=== PATIENT | female | born 1985 | race Asian ===

== ENCOUNTER 2021-12-02 15:18 | Outpatient (CLI) | payer OTHER ==
[2021-12-02 16:01] LABS: BILIRUBIN,URINE NEGATIVE (NEGATIVE); GLUCOSE, URINE (UA) NEGATIVE (NEGATIVE); KETONES,URINE (UA) NEGATIVE (NEGATIVE); LEUKOCYTE ESTERASE, URINE TRACE (NEGATIVE); NITRITE,URINE NEGATIVE (NEGATIVE); OCCULT BLOOD,URINE NEGATIVE (NEGATIVE); PROTEIN,URINE NEGATIVE (NEGATIVE); UROBILINOGEN,URINE 0.2 (NORMAL) E.U./dL (NORMAL)
[2021-12-02 16:02] LABS: CLARITY,URINE CLEAR (CLEAR)
[2021-12-02 17:04] LABS: BACTERIA,URINE Rare /HPF (None Seen); RBC,URINE 0-5 /HPF (0-5); SQUAMOUS EPITHELIAL CELL,UR FEW Squamous (<= Few); WBC,URINE 0-3 /HPF (0-5)
== END 2021-12-02 15:19 | disposition home or self-care (01) ==
LOC: LAB 15:18
PROVIDERS: ATTEND Obstetrics & Gynecology
DX: Z32.01 Encounter for pregnancy test, result positive (principal)
CPT/HCPCS: 81001; 87086

== ENCOUNTER 2021-12-18 11:12 | Outpatient (CLI) | payer OTHER ==
--- NOTE | 2021-12-18 12:58 | Ultrasound Report ---
PROCEDURE: OB First Trimester INDICATIONS: POSITIVE TEST, DATING OUTSIDE/PRIOR DATING DATA: Last menstrual period (LMP): 10/04/2021. LMP-based estimated date of delivery (MICHAEL): 07/11/2022. First dating scan (date and location): 12/18/2021. Estimated date of delivery (MICHAEL) from first dating scan: 07/12/2022. TECHNIQUE: Real-time scanning was performed of the fetus and maternal pelvic organs, with image documentation. COMPARISON: None. FINDINGS: Embryo: Intrauterine gestational sac and pole are seen. The crown-rump length is 3.7 cm, resul ting in an estimated gestational age of 10 weeks 4 days. The gestational sac is located in the uterin e fundus with somewhat thinned appearance of the overlying myometrium. Heart rate: 173 bpm Measurement variability in dating: +/- 4 weeks by LMP, +/- 7 days by mean sac diameter (use before 6 weeks gestation if crown-rump length not able to be measured), +/- 5 days by crown-rump length (6-12 weeks gestation). Maternal organs: Left ovarian corpus luteal cyst is seen. Right ovary is unremarkable. IMPRESSION: Single live intrauterine with estimated gestational age of 10 weeks 4 days, resulting in an ultrasound MICHAEL of 07/12/2022. Of note, the myometrium overlying the gestational sac appears somewhat thin, and clinical and imaging follow-up is recommended to exclude the possibility of an interstitia l or cornual . Reviewed by: Arik Chan MD on 12/18/2021 12:57 PM PDT Approved by: Arik Chan MD on 12/18/2021 12:57 PM PDT Station ID: [id number]
== END 2021-12-18 11:13 | disposition home or self-care (01) ==
LOC: DI 11:12
PROVIDERS: ATTEND Obstetrics & Gynecology
DX: O26.891 Other specified pregnancy related conditions, first trimester (principal); Z3A.10 10 weeks gestation of pregnancy

== ENCOUNTER 2021-12-30 08:00 | Outpatient (CLI) | payer OTHER ==
[2021-12-30 23:46] LABS: CHLAMYDIA TRACHOMATIS DNA NEGATIVE (NEGATIVE); NEISSERIA GONORRHOEAE DNA NEGATIVE (NEGATIVE); TRICHOMONAS VAGINALIS DNA NEGATIVE (NEGATIVE)
== END 2021-12-30 23:59 | disposition home or self-care (01) ==
LOC: LAB.R 08:00
PROVIDERS: ATTEND Obstetrics & Gynecology
DX: Z11.3 Encounter for screening for infections with a predominantly sexual mode of transmission (principal)
CPT/HCPCS: 87491; 87591; 87661

== ENCOUNTER 2021-12-30 12:11 | Outpatient (CLI) | payer OTHER ==
[2021-12-30 12:28] LABS: BASOPHILS % (AUTO) 0.3 %; EOSINOPHILS # (AUTO) 0.5 10^3/uL (0.0-0.7); EOSINOPHILS % (AUTO) 5.5 %; HCT - HEMATOCRIT 38.3 % (37.0-47.0); HGB - HEMOGLOBIN 13.4 g/dL (12.0-16.0); LYMPHOCYTES # (AUTO) 1.6 10^3/uL (1.5-3.5); LYMPHOCYTES % (AUTO) 17.7 %; MEAN CORPUSCULAR HEMOGLOBIN 32.7 pg (27.0-31.0); MEAN CORPUSCULAR VOLUME 93.4 fL (81.0-99.0); MEAN PLATELET VOLUME 9.2 fL (7.9-10.8); MONOCYTES # (AUTO) 0.4 10^3/uL (0.0-1.0); MONOCYTES % (AUTO) 3.9 %; NEUTROPHILS # (AUTO) 6.5 10^3/uL (1.5-6.6); NEUTROPHILS % (AUTO) 72.3 %; PLT - PLATELET COUNT 206 10^3/uL (130-450); RED CELL DISTRIBUTION WIDTH 11.8 % (12.0-15.0)
[2021-12-31 06:11] LABS: HBsAG SCREEN Negative (Negative); HCV AB <0.1 s/co ratio (0.0-0.9); HIV SCREEN 4TH GENERATION Non Reactive (Non Reactive); RPR Non Reactive (Non Reactive)
[2021-12-31 13:11] LABS: VARICELLA-ZOSTER AB IGG 779 index (Immune >165)
== END 2021-12-30 12:12 | disposition home or self-care (01) ==
LOC: LAB 12:11
PROVIDERS: ATTEND Obstetrics & Gynecology
DX: Z36.89 Encounter for other specified antenatal screening (principal)
CPT/HCPCS: 36415; 85025; 86592; 86762; 86787; 86803; 86850; 86900; 86901; 87340; 87389; 87491; 87591; 87661

== ENCOUNTER 2022-01-10 12:49 | Outpatient (CLI) | payer OTHER ==
--- NOTE | 2022-01-10 19:31 | Ultrasound Report ---
PROCEDURE: OB F/U or Repeat INDICATIONS: ABN PRESENTATION OUTSIDE/PRIOR DATING DATA: Last menstrual period (LMP): 10/04/2021. LMP-based estimated date of delivery (MICHAEL): 07/11/2022. First dating scan (date and location): 12/18/2021. Estimated date of delivery (MICHAEL) from first dating scan: 07/12/2022. TECHNIQUE: Real-time scanning was performed of the fetus, with image documentation and biometric measurements. Endovaginal scanning: None COMPARISON: None. FINDINGS: General: A single living intrauterine gestation is present in the mid body of the uterus. Presentation: Variable Placenta: Placental position is anterior, without previa. Amniotic fluid index: 7.3 cm, normal for gestational age. Largest vertical pocket 2.2 cm heart rate: 160 beats per minute. Maternal cervical canal: 4.3 cm long; normal length is 2.5 cm or more. biometrics: Biparietal diameter: 2.52 cm, 14 week 2 day Head circumference: 19.14 cm, 14 week 1 day Abdominal circumference: 7.53 cm, 14 week 0 day Femur length: 1.21 cm, 15 week 4 day Estimated gestational age from initial scan: 13 week 6 day Composite gestational age from present scan: 14 week 0 day Visualized anatomy within normal limits. Measurement variability in biometric dating: +/- 10 days from 12-20 weeks gestation, +/- 2 weeks from 20-30 weeks gestation, +/- 3 weeks at 30 weeks gestation or more. Other: Perigestational bleed measures 2.5 x 0.9 x 2.2 cm. The corpus luteum cyst in left ovary measur es 1.8 x 1.4 x 1.5 cm IMPRESSION: Single live intrauterine consistent with 14 week 0 day gestation by current ultrasound, wel l-positioned in the endometrial cavity. No evidence of interstitial or cornual Small perigestational bleed, 2.5 x 2.2 cm Reviewed by: Renato Cox MD on 01/10/2022 6:29 PM DANNY Approved by: Renato Cox MD on 01/10/2022 6:29 PM AKDT Station ID: [id number]
== END 2022-01-10 12:50 | disposition home or self-care (01) ==
LOC: DI 12:49
PROVIDERS: ATTEND Obstetrics & Gynecology
DX: O46.92 Antepartum hemorrhage, unspecified, second trimester (principal); Z3A.14 14 weeks gestation of pregnancy

== ENCOUNTER 2022-01-20 11:36 | Outpatient (CLI) | payer OTHER | END 2022-01-20 11:37 | disposition home or self-care (01) | LOC: LAB 11:36 | PROVIDERS: ATTEND Obstetrics & Gynecology | DX: O09.91 Supervision of high risk pregnancy, unspecified, first trimester (principal); Z36.89 Encounter for other specified antenatal screening | CPT/HCPCS: 36415; 81599; 82105 ==

== ENCOUNTER 2022-04-18 14:10 | Outpatient (CLI) | payer OTHER | END 2022-04-18 14:11 | disposition home or self-care (01) | LOC: LAB 14:10 | PROVIDERS: ATTEND Obstetrics & Gynecology | DX: O09.91 Supervision of high risk pregnancy, unspecified, first trimester (principal) | CPT/HCPCS: 36415; 82950 ==

== ENCOUNTER 2022-05-09 17:01 | Outpatient (CLI) | payer OTHER ==
--- NOTE | 2022-05-10 02:38 | Ultrasound Report ---
PROCEDURE: OB F/U or Repeat INDICATIONS: UTERINE SIZE DATE DISCREPENCY OUTSIDE/PRIOR DATING DATA: Last menstrual period (LMP): 10/04/2021. LMP-based estimated date of delivery (MICHAEL): 07/11/2022. First dating scan (date and location): 12/18/2021. Estimated date of delivery (MICHAEL) from first dating scan: 07/12/2022. The below data below was generated using the ultrasound derived MICHAEL of 07/12/2022 TECHNIQUE: Real-time scanning was performed of the fetus, with image documentation and biometric measurements. COMPARISON: 02/28/2022, 01/10/2022, 12/18/2021. FINDINGS: General: A single living intrauterine gestation is present. Presentation: Breech Placenta: Placental position is anterior, without previa. Amniotic fluid index: 18.2 cm, within normal limits for gestational age. Deepest pocket: 5.8 cm. heart rate: 152 beats per minute. Maternal cervical canal: 3.2 cm long; normal length is 2.5 cm or more. biometrics: Biparietal diameter: 7.6 cm, 30 weeks 3 days Head circumference: 29.6 cm, 32 weeks 5 days Abdominal circumference: 25.5 cm, 29 weeks 5 days Femur length: 5.9 cm, 30 weeks 4 days Estimated gestational age from initial scan: 30 weeks 6 days Composite gestational age from present scan: 30 weeks 6 days Estimated weight and percentile: 1551 g, 22nd percentile Measurement variability in biometric dating: +/- 10 days from 12-20 weeks gestation, +/- 2 weeks from 20-30 weeks gestation, +/- 3 weeks at 30 weeks gestation or more. Other: A probable corpus luteal cyst within the left ovary is redemonstrated measuring approximately 1.2 cm. IMPRESSION: 1. Single living intrauterine demonstrating interval growth with estimated weight at the 22nd percentile, decreased from the 51st percentile on the prior study. Recommend continued follo w-up. Reviewed by: Russell Hernandez MD on 05/10/2022 2:36 AM PDT Approved by: Russell Hernandez MD on 05/10/2022 2:36 AM PDT Station ID: [id number]
== END 2022-05-09 17:02 | disposition home or self-care (01) ==
LOC: DI 17:01
PROVIDERS: ATTEND Obstetrics & Gynecology
DX: O26.843 Uterine size-date discrepancy, third trimester (principal); Z3A.30 30 weeks gestation of pregnancy

== ENCOUNTER 2022-06-12 10:30 | Outpatient (CLI) | payer OTHER | END 2022-06-12 23:59 | disposition home or self-care (01) | LOC: LAB.R 10:30 | PROVIDERS: ATTEND Obstetrics & Gynecology | DX: Z36.85 Encounter for antenatal screening for Streptococcus B (principal) | CPT/HCPCS: 87797 ==

== ENCOUNTER 2022-07-13 08:02 | Inpatient (IN) | payer OTHER ==
[2022-07-13] MEDS ORDERED: OXYTOCIN/SODIUM CHLORIDE 500 ML IV ONE (08:07)
[2022-07-13] MEDS ORDERED: LABETALOL 20 MG/4 ML SYRINGE IVP PRN ×3 (08:07)
[2022-07-13] MEDS ORDERED: hydrALAZINE INJ 20 MG/ML VIAL IVP PRN ×2 (08:07)
[2022-07-13] MEDS ORDERED: TERBUTALINE 1 MG/ML VIAL SUBQ PRN (08:07)
[2022-07-13] MEDS ORDERED: LACTATED RINGERS 1,000 ML ONE (08:07)
[2022-07-13] MEDS ORDERED: METHYLERGONOVINE 0.2 MG/ML VIAL IM PRN (08:07)
[2022-07-13] MEDS ORDERED: fentaNYL 100 MCG/2 ML VIAL IVP PRN (08:07)
[2022-07-13] MEDS ORDERED: lidocaine 1% 20 ML MDV ID PRN (08:07)
[2022-07-13] MEDS ORDERED: SODIUM CHLORIDE FLUSH 0.9% 10 ML SYRINGE IVP PRN (08:07)
[2022-07-13] MEDS ORDERED: OXYTOCIN/SODIUM CHLORIDE 500 ML IV PRN (08:07)
[2022-07-13] MEDS ORDERED: TRANEXAMIC ACID IN NACL 1,000 MG/100 ML BAG IV PRN (08:07)
[2022-07-13] MEDS ORDERED: miSOPROStoL 200 MCG TABLET BC PRN (08:07)
[2022-07-13] MEDS ORDERED: OXYTOCIN 10 UNIT/ML VIAL IM PRN (08:07)
[2022-07-13] MEDS ORDERED: NIFEdipine 10 MG CAPSULE PO PRN (08:07)
[2022-07-13] MEDS ORDERED: CARBOPROST TROMETHAMINE 250 MCG/ML AMP IM PRN (08:07)
[2022-07-13] MEDS ORDERED: miSOPROStoL 200 MCG TABLET PR PRN (08:07)
[2022-07-13] MEDS ORDERED: lidocaine 1% 20 ML MDV ONE (08:19)
--- NOTE | 2022-07-13 08:50 | HISTORY & PHYSICAL EXAMINATION ---
Admit History - Visit Reason Visit Reason: Contractions - : 2 Parity: 1 Care: positive: [facility] Risk/History: positive: None Complications This : positive: None - Mother's Labs Mother's Blood Type: positive: A Mother's RH: positive: Positive GBS: positive: Group B Strep Positive Rubella Status: positive: Immune Review of Systems - Cardiovascular Cariovascular: denies: Chest pain - Gastrointestinal Gastrointestinal: denies: Abdominal pain - All Other Systems All Other Systems: reports: Reviewed and negative Physical - Abdominal Exam Contraction Intensity: positive: Strong Uterine Resting Tone: positive: Soft - Monitoring Strip Review: positive: Category I Plan for Labor - Plan For Labor Plan for Labor: presented at term with full cervical dilation Patient delivered shortly after arriving without complication There was not time for GBS prophylaxis
--- NOTE | 2022-07-13 08:52 | DELIVERY NOTE ---
Delivery Note - Labor Labor: positive: Spontaneous, Augmented by ARM - Infant Delivery Method Delivery Method: positive: Spontaneous vaginal delivery - Presentation Presentation: positive: Vertex - Nuchal Cord Nuchal Cord: positive: Present, Reduced (loose nuchal cord reduced at perineum) - Anesthetic Anesthetic: positive: Lidocaine - 0.5% plain - Amniotic Fluid Description Amniotic Fluid Description: positive: Clear - Episiotomy Type Episiotomy Type: positive: None - Laceration Laceration: positive: None (very superficial skid andrew the interrupted 4-0 vicryl suture) - Suture Suture Type: positive: Vicryl Suture Size: positive: 4-0 - Delivery Outcome Delivery Outcome: positive: Livebirth - [place] : positive: Placed in direct skin contact with mother, Warmed, Tutor Key used sex: positive: Male - Cord Cord: positive: 3 vessels - Placenta Placenta: positive: Intact - Estimated Blood Loss Estimated Blood Loss (in cc): 100 - Post Delivery Events Post Delivery Events: positive: No post delivery events - Delivery Comments (Free Text/Narrative) Delivery Comments (Free Text/Narrative): presented full cervical dilation and delivered after pushing for two contractions. atraumatically delivered from YVES position. Loose nuchal cord reduced at perineum. Placenta spontaneously delivered intact with 3vc. Very superficial laceration that required suture for hemostasis.
[2022-07-13] MEDS ORDERED: LACTATED RINGERS 1,000 ML IV SCH ×2 (09:00→10:00)
[2022-07-13] MEDS ORDERED: SIMETHICONE CHEW 80 MG TABLET PO PRN (09:36)
[2022-07-13 10:05] LABS: BASOPHILS # (AUTO) 0.1 10^3/uL (0.0-0.1); BASOPHILS % (AUTO) 0.4 %; EOSINOPHILS # (AUTO) 0.6 10^3/uL (0.0-0.7); EOSINOPHILS % (AUTO) 4.7 %; HCT - HEMATOCRIT 45.4 % (37.0-47.0); HGB - HEMOGLOBIN 15.4 g/dL (12.0-16.0); LYMPHOCYTES # (AUTO) 1.5 10^3/uL (1.5-3.5); LYMPHOCYTES % (AUTO) 12.6 %; MEAN CORPUSCULAR HEMOGLOBIN 31.7 pg (27.0-31.0); MEAN CORPUSCULAR HGB CONC 33.9 g/dL (32.0-36.0); MEAN CORPUSCULAR VOLUME 93.4 fL (81.0-99.0); MEAN PLATELET VOLUME 11.7 fL (7.9-10.8); MONOCYTES # (AUTO) 0.5 10^3/uL (0.0-1.0); MONOCYTES % (AUTO) 4.3 %; NEUTROPHILS # (AUTO) 9.1 10^3/uL (1.5-6.6); NEUTROPHILS % (AUTO) 77.5 %; PLT - PLATELET COUNT 155 10^3/uL (130-450); RED BLOOD COUNT 4.86 10^6/uL (4.20-5.40); RED CELL DISTRIBUTION WIDTH 12.5 % (12.0-15.0); WHITE BLOOD COUNT 11.7 x10^3/uL (4.8-10.8)
[2022-07-13] MEDS: DOCUSATE SODIUM 100 MG CAPSULE PO PRN ×2 (12:36→19:55)
[2022-07-13] MEDS: IBUPROFEN 600 MG TABLET PO SCH ×3 (12:37→19:55)
[2022-07-13] MEDS: ACETAMINOPHEN 500 MG TABLET PO SCH ×3 (12:37→19:56)
[2022-07-14] MEDS: ACETAMINOPHEN 500 MG TABLET PO SCH ×2 (02:14→09:30)
[2022-07-14] MEDS: IBUPROFEN 600 MG TABLET PO SCH ×3 (04:10→15:51)
[2022-07-14] MEDS: DOCUSATE SODIUM 100 MG CAPSULE PO PRN (09:30)
--- NOTE | 2022-07-14 09:56 | PROVIDER PROGRESS NOTE ---
Subjective - Prog Note Date Prog Note Date: 07/14/22 - Subjective Subjective: Subjective Patient reports she is doing well. Lochia appropriate. Denies heavy bleeding. Ambulating. Pelvic and abdominal pain well-controlled. Tolerating oral intake. Diet: Regular. Voiding without difficulty. Passing flatus. Denies BM. Patient is bonding with baby in room Breast feeding somewhat of a struggle, but tongue clipped today for tongue-tie. Denies feeling lightheaded, dizzy or excessively fatigued. Control: Condoms Objective General: Alert, oriented, no apparent distress. Cardiovascular: Regular rate. Regular rhythm. Lungs: No increased work of breathing. Abdomen: Uterus firm. Below umbilicus. No guarding or rebound. Extremities: No pain on palpation. No cords palpated. Distal pulses intact Assessment and Plan day 1. -Routine care -Anticipate discharge tomorrow -We will reassess breast-feeding after tongue clip GBS positive Plan for 24 hours observation of Objective - Vital Signs/Intake & Output Vital Signs: Vital Signs x48h Temp Pulse Resp BP Pulse Ox 07/14/22 08:05 98.2 F 75 16 115/63 97 07/14/22 02:00 97.3 F L 74 18 112/52 L 99 Intake & Output: Intake & Output 07/11/22 07/12/22 07/13/22 07/14/22 23:59 23:59 23:59 23:59 Intake Total 2080 450 Output Total 550 Balance 1530 450 - Lab Results Fish Bones: 07/13/22 08:10 Other Labs: Lab Results x24hrs 07/13/22 07/13/22 Range/Units 08:10 08:10 WBC 11.7 H (4.8-10.8) x10^3/uL RBC 4.86 (4.20-5.40) 10^6/uL Hgb 15.4 (12.0-16.0) g/dL Hct 45.4 (37.0-47.0) % MCV 93.4 (81.0-99.0) fL MCH 31.7 H (27.0-31.0) pg MCHC 33.9 (32.0-36.0) g/dL RDW 12.5 (12.0-15.0) % Plt Count 155 (130-450) 10^3/uL MPV 11.7 H (7.9-10.8) fL Neut # (Auto) 9.1 H (1.5-6.6) 10^3/uL Lymph # (Auto) 1.5 (1.5-3.5) 10^3/uL [place] # (Auto) 0.5 (0.0-1.0) 10^3/uL Eos # (Auto) 0.6 (0.0-0.7) 10^3/uL Baso # (Auto) 0.1 (0.0-0.1) 10^3/uL Absolute Nucleated RBC 0.00 x10^3/uL Nucleated RBC % 0.0 /100WBC Blood Type A POSITIVE Antibody Screen NEGATIVE
[2022-07-14] MEDS ORDERED: HYDROCORTISONE 1% CREAM 28 GM TUBE TOP SCH (13:00)
[2022-07-14 16:05] VITALS: BP 118/63
--- NOTE | 2022-07-14 17:44 | Discharge Plan ---
Discharge Plan Problem Reviewed?: Yes Disposition: Home, Self Care Condition: Good Diet: Regular Activity Restrictions: Additional Comments Shower Restrictions: No Driving Restrictions: No Instruction Topics: Vaginal After No Smoking: If you smoke, Please STOP! Call for help. Follow-up with: Jeramy Campa MD [Provider Admit Priv/Credential] -
--- NOTE | 2022-07-14 23:13 | Labor Flowsheet ---
Labor Flowsheet Datetime Report Generated by CPN: 07/14/2022 23:12 Datetime: 07/13/2022 10:50 VAGINAL EXAM Membranes Ruptured Date/Time: 07/13/2022 08:18 Membranes Rupture Method: Artificial Amniotic Fluid Color: Clear Amniotic Fluid Amount: Moderate Amniotic Fluid Odor: None Datetime: 07/13/2022 08:41 VITAL SIGNS NBP Sys/Helen/Mean (mmHg): 136 : 87 : 99 Pulse: 75 COMMUNICATION LaborFlag: Labor
--- NOTE | 2022-07-15 12:03 | DISCHARGE SUMMARY ---
Discharge Summary Admit Date: 07/13/22 Discharge Date: 07/14/22 Discharging Provider: Jeramy Campa MD Code Status: Attempt Resuscitation Condition at Discharge: Good Discharge Disposition: 01 Home, Self Care - DIAGNOSES Admission Diagnoses: Term Labor 40 weeks gestation Discharge Diagnoses with Status of Each Condition: 40 weeks gestation term labor delivery of live lewis - HPI History of Present Illness: Patient doing well this afternoon. No acute complaints. Breast feeding well. No dizziness. Ambulating and voiding without problem. Desires to go home. Physical Constitutional: alert, no acute distress, well hydrated, well developed, well nourished, appropriate dress. Cardiovascular: Regular rate and rhythm. Respiratory: no respiratory distress. Abdomen: nondistended, nontender, no guarding. Uterus firm and below umbilicus. Psych: affect and mood appropriate, normal interaction, good eye contact. - HOSPITAL COURSE Hospital Course: Patient presented at 40 weeks gestation josseline and in active labor. She was checked and found to be complete and had a delivery shortly after arrival. Spontaneous vaginal delivery was uncomplicated. Her stay was similarly uncomplicated. She was discharged on day 1. - ALLERGIES Allergies/Adverse Reactions: Allergies Allergy/AdvReac Type Severity Reaction Status Date / Time No Known Drug Allergies Allergy Verified 07/13/22 12:40 - LABS Result Diagrams: 07/13/22 08:10 - FOLLOW UP Follow Up: Jeramy Campa at [facility] in 1 week - TIME SPENT Time Spent in Discharge (Minutes): 20
== END 2022-07-14 22:15 | disposition home or self-care (01) | DRG 807 ==
LOC: WFO 08:02 → FBP 08:05 → WFO 08:06 → FBP 08:07
PROVIDERS: ADMIT Obstetrics & Gynecology Obstetrics; ATTEND Obstetrics & Gynecology
PROC: 10907ZC Drainage of Amniotic Fluid, Therapeutic from Products of Conception, Via Natural or Artificial Opening (ICD-10-PCS; principal; 2022-07-13)
PROC: 10E0XZZ Delivery of Products of Conception, External Approach (ICD-10-PCS; 2022-07-13)
PROC: 0HQ9XZZ Repair Perineum Skin, External Approach (ICD-10-PCS; 2022-07-13)
DX: O99.824 Streptococcus B carrier state complicating childbirth (principal); Z37.0 Single live birth; O69.81X0 Labor and delivery complicated by cord around neck, without compression, not applicable or unspecified; Z3A.40 40 weeks gestation of pregnancy; O70.0 First degree perineal laceration during delivery
CPT/HCPCS: 85025; 86850; 86900; 86901; A9270; J7120; 99215